=== PATIENT | male | born 1945 | race Caucasian/White ===

== ENCOUNTER 2023-01-25 06:16 | Emergency (ER) | payer MEDICARE, OTHER ==
[2023-01-25 07:19] LABS: BASOPHILS ABSOLUTE AUTO 0.05 K/uL (0.00-0.20); BASOPHILS PERCENT AUTO 0.8 % (0.0-2.0); EOSINOPHILS ABSOLUTE AUTO 0.44 K/uL (0.00-0.50); EOSINOPHILS PERCENT AUTO 6.6 % (0.0-5.0); HEMATOCRIT 43.2 % (39.0-49.0); HEMOGLOBIN 13.9 g/dL (13.1-16.8); LYMPHOCYTES ABSOLUTE AUTO 0.94 K/uL (0.50-3.50); LYMPHOCYTES PERCENT AUTO 14.2 % (10.0-50.0); MEAN CORPUSCULAR HEMOGLOBIN 31.3 pg (28.2-33.3); MEAN CORPUSCULAR HGB CONC 32.2 g/dL (31.7-36.0); MEAN CORPUSCULAR VOLUME 97.3 fL (84.0-98.0); MONOCYTES ABSOLUTE AUTO 0.73 K/uL (0.00-1.00); NEUTROPHILS ABSOLUTE AUTO 4.48 K/uL (1.40-7.00); NEUTROPHILS PERCENT AUTO 67.4 % (45.0-80.0); PLATELET COUNT,PLT 180 K/uL (150-350); RED BLOOD CELL COUNT 4.44 M/uL (4.33-5.41); RED CELL DISTRIBUTION WIDTH 13.8 % (11.2-14.1); WHITE BLOOD CELL COUNT,WBC 6.6 K/uL (4.0-10.2)
[2023-01-25 07:47] LABS: ALANINE AMINOTRANSFERASE,ALT 77 U/L (12-78); ALBUMIN 3.4 g/dL (3.4-5.0); ALKALINE PHOSPHATASE 62 IU/L (46-116); ASPARTATE AMNIOTRANSFERASE,AST 58 U/L (15-37); BILIRUBIN TOTAL 0.8 mg/dL (0.2-1.0); BLOOD UREA NITROGEN,BUN 40 mg/dL (7-18); CALCIUM 8.9 mg/dL (8.5-10.1); CHLORIDE,CL 100 mmol/L (98-107); CREATININE 1.46 mg/dL (0.51-1.17); ESTIMATED GFR 49 mL/min (>=60); GLUCOSE RANDOM 110 mg/dL (70-99); POTASSIUM,K 4.3 mmol/L (3.5-5.1); PRO B-TYPE NATRIUR PEPT,BNPPRO 2233 pg/mL (0-125); PROTEIN TOTAL,TP 7.5 g/dL (6.4-8.2); SODIUM,NA 136 mmol/L (136-145)
[2023-01-25 07:57] LABS: CORONAVIRUS COVID-19 NAA NEGATIVE (NEGATIVE); INFLUENZA A NAA NEGATIVE (NEGATIVE); INFLUENZA B NAA NEGATIVE (NEGATIVE); RESPIRATORY SYNCYTIAL VIR NAA NEGATIVE (NEGATIVE)
[2023-01-25 08:05] LABS: INR 1.1; PROTHROMBIN TIME 11.3 SEC (9.0-11.1)
[2023-01-25] MEDS ORDERED: Sodium Chloride 0.9% 1,000 ML IV ONE (08:18)
[2023-01-25] MEDS ORDERED: Piperacillin/Tazobactam 3.375 GM in Sodium Chloride 0.9% 100 ML IV SCH (08:30)
[2023-01-25 09:04] LABS: APPEARANCE,URINE CLEAR; BILIRUBIN,URINE NEGATIVE (NEGATIVE); COLOR,URINE DARK YELLOW; GLUCOSE,URINE NEGATIVE (NEGATIVE); KETONES,URINE NEGATIVE (NEGATIVE); LEUKOCYTE ESTERASE,URINE NEGATIVE (NEGATIVE); NITRITE,URINE NEGATIVE (NEGATIVE); OCCULT BLOOD,URINE NEGATIVE (NEGATIVE); PH,URINE 5.5 (5.0-9.0); PROTEIN,URINE NEGATIVE (NEGATIVE); UROBILINOGEN,URINE 0.2 E.U./dL (0.2-1.0)
== END 2023-01-25 11:00 ==
LOC: LL.ED 06:16
DX: J18.9 Pneumonia, unspecified organism (principal); L89.159 Pressure ulcer of sacral region, unspecified stage; E86.0 Dehydration; M19.90 Unspecified osteoarthritis, unspecified site; I48.91 Unspecified atrial fibrillation; I25.2 Old myocardial infarction; J44.9 Chronic obstructive pulmonary disease, unspecified; I11.0 Hypertensive heart disease with heart failure; I50.9 Heart failure, unspecified; K21.9 Gastro-esophageal reflux disease without esophagitis; Z86.711 Personal history of pulmonary embolism; Z91.018 Allergy to other foods; Z87.891 Personal history of nicotine dependence; Z79.899 Other long term (current) drug therapy; Z20.822 Contact with and (suspected) exposure to COVID-19
CPT/HCPCS: 0241U; 36415; 71046; 80053; 81003; 83605; 83880; 85025; 85610; 87040; 87070; 87205; 96361; 96365; 99285-25; J2543; J3490; J7030